=== PATIENT | female | born 1960 | race Two or more races ===

== ENCOUNTER 2019-09-19 05:52 | Day surgery (SDC) | payer OTHER ==
[2019-09-19] VITALS (10 sets, daily range): BP systolic 122–163; BP diastolic 86–92
[~2019-09-19] VITALS: Ht 134.6 cm; Wt 52.2 kg
--- NOTE | 2019-09-19 06:44 | Anethesia Preoperative Eval ---
Anesthesia Pre-op PMH/ROS General Date of Evaluation: Sep 19, 2019 Time of Evaluation: 06:43 Anesthesiologist: wyatt ASA Score: ASA 3 Mallampati Score Class I : Soft palate, uvula, fauces, pillars visible Class II: Soft palate, uvula, fauces visible Class III: Soft palate, base of uvula visible Class IV: Only hard plate visible Mallampati Classification: Class II Surgeon: jeanne Diagnosis: abdominal pain, gerd Surgical Procedure: egd/colonoscopy Anesthesia History: none Social History: smoking - nonsmoker Family History: no anesthesia problems Allergies: Coded Allergies: ACETAMINOPHEN (Verified Allergy, Severe, Hives, 09/19/19) Shrimp (Verified Allergy, Severe, Hives, 09/19/19) Medications: see eMAR Patient NPO?: Yes Past Medical History Cardiovascular: Reports: HTN, other - hyperlipidemia Pulmonary: Reports: asthma PSxH Narrative: Anesthesia Pre-op Phys. Exam Physician Exam Last Vital Signs Date Time Temp Pulse Resp B/P (MAP) Pulse Ox O2 Delivery O2 Flow Rate FiO2 09/19/19 07:15 98.0 68 17 145/89 94 Room Air Constitutional: NAD Neurologic: CN 2-12 intact Cardiovascular: RRR Respiratory: CTA Gastrointestinal: S/NT/ND Airway Exam Mallampati Score: Class II MO: limited Neck: flexible TMD: 2fb ROM: limited Anesthesia Pre-op A/P Risk Assessment & Plan Assessment: asa3 Plan: mac Status Change Before Surgery: No Pre-Antibiotics Drug: Tamara Hollingsworth MD Sep 19, 2019 06:44
--- NOTE | 2019-09-19 07:12 | Short Stay Surgery H&P ---
History of Present Illness History of Present Illness Chief Complaint Abdominal pain, constipation/GERDS HPI Jenny Moses is a 58 year old female who was admitted on for Abdominal Pain , Gerd and constipation Patient History PAST MEDICAL HISTORY: (1) Hypertension (2) Asthma (3) Hyperlipidemia (4) History of section Review of Systems Cardiovascular: Reports: hypertension Respiratory: Reports: asthma Skeletal: Reports: trauma Gastrointestinal: Reports: gastro esophageal reflux disease Genitourinary: Reports: no symptoms Neurologic: Reports: no symptoms Endocrine: Reports: no symptoms Hematologic: Reports: no symptoms Physical Exam Skin: normal HENT: normal Heart: normal Abdomen: abnormal Extremities: normal Genitourinary: normal Plan Plan of Care Upper and the lower GI endoscopies and obtaining biopsies Preop Interventions None Summary of Findings See the reports Attestation Are the patient's medical conditions optimized for surgery? Attestation Response: yes Jaimee Alexis MD Sep 19, 2019 07:12
--- NOTE | 2019-09-19 07:13 | Pre-Procedure Note/Attestation ---
Pre-Procedure Note/Attestation Complete Prior to Procedure Planned Procedure: left Procedure Narrative: Examination of the upper and the lower GI tract via endoscopy Indications for Procedure Pre-Operative Diagnosis: R/O Peptic ulcer/gastritis/colitis/tumors, polyps etc. Attestation I attest that I discussed the nature of the procedure; its benefits; risks and complications; and alternatives (and the risks and benefits of such alternatives ), prior to the procedure, with the patient (or the patient's legal customer service representative teller). I attest that, if there was a reasonable possibility of needing a blood transfusion, the patient (or the patient's legal customer service representative teller) was given the [place] Department [employer] standardized written summary, pursuant to the [place] Blood Safety Act ([place] Health and Safety Code # 1645, as amended). I attest that I re-evaluated the patient just prior to the surgery and that there has been no change in the patient's H&P, except as documented below: Jaimee Alexis MD Sep 19, 2019 07:13
[2019-09-19] MEDS ORDERED: LISINOPRIL10 MG ORAL (07:46)
[2019-09-19] MEDS ORDERED: Lidocaine 1% MPF 10mg/ml 5ml ONE (08:00)
[2019-09-19] MEDS ORDERED: LR 1000ml ONE (08:00)
[2019-09-19] MEDS ORDERED: Propofol 200mg/20ml IV ONE (08:00)
--- NOTE | 2019-09-19 08:28 | Endoscopy Procedure Note ---
Endoscopy Procedure Note General Indication for Procedure: Abdominal pain/dysphagia/GERDs, constipation. Procedures Performed: EGD - Mild antral gastritis otherwise normal Upper GI. endoscopy, biopsaies obtained from antrum and duodenal bulb area., colonoscopy - Minimal internal hemorrhoids;otherwise completely normal total colonoscopy upto the cecal base. Specimen: yes Pt Tolerated Procedure Well: Yes Estimated Blood Loss: none Anesthesia Anesthesiologist: Dr. Harper Anesthesia: moderate sedation Medications Medication Given: see anesthesia record Inserted Devices Implant(s) used?: No Quality Quality of Bowel Preparation: Excellent Did scope reach the cecum?: Yes Was there any complications?: No GI Core Measures 50 yrs or older w/o bx or poly: Yes 10yrs. F/U recommended: Yes If not recommended, why?: Med reason:<3 yrs.: System Reason:<3 yrs.: Jaimee Alexis MD Sep 19, 2019 08:28
--- NOTE | 2019-09-19 08:29 | Discharge Instructions ---
Discharge Instructions Discharge Instructions Follow up with: No need to see Dr. angel, the results will be sent to Dr. Rea. For Congestive Heart Failure Reminder Report to your physician any weight gain of 5 pounds or more in one week. Jaimee Angel MD Sep 19, 2019 08:29
[2019-09-19] MEDS ORDERED: LR 1000ml 1,000 ML IVLG SCH (08:37)
--- NOTE | 2019-09-19 08:43 | Immediate Post-Op Evaluation ---
Immediate Post-Op Evalulation Immediate Post-Op Evalulation Procedure: egd/colonoscopy w/bx Date of Evaluation: Sep 19, 2019 Time of Evaluation: 08:43 IV Fluids: 225ml lr Blood Products: none Estimated Blood Loss: negligible Blood Pressure Systolic: 122 Blood Pressure Diastolic: 90 Pulse Rate: 67 Respiratory Rate: 18 O2 Sat by Pulse Oximetry: 100 Temperature (Fahrenheit): 97.0 Pain Score (1-10): 0 Nausea: No Vomiting: No Complications none Patient Status: awake, reacts, patent Hydration Status: adequate Drug: Tamara Hollingsworth MD Sep 19, 2019 08:43
[2019-09-19] MEDS ORDERED: Midazolam 2mg/2ml Inj IVP PRN (08:45)
[2019-09-19] MEDS ORDERED: fentaNYL 100 mcg/2 mL IV PRN (08:45)
[2019-09-19] MEDS ORDERED: DiphenhydrAMINE 50mg/ml Inj IVP PRN (08:45)
[2019-09-19] MEDS ORDERED: Atropine Inj 1mg/10ml Syr IV PRN (08:45)
--- NOTE | 2019-09-19 08:45 | 48 Hour Post Anesthesia Eval ---
Post Anesthesia Evaluation Procedure: egd/colonoscopy w/bx Date of Evaluation: Sep 19, 2019 Time of Evaluation: 08:45 Blood Pressure Systolic: 140 0: 86 Pulse Rate: 61 Respiratory Rate: 18 Temperature (Fahrenheit): 97.0 O2 Sat by Pulse Oximetry: 100 Airway: patent Nausea: No Vomiting: No Pain Intensity: 0 Hydration Status: adequate Cardiopulmonary Status: stable Mental Status/LOC: patient returned to baseline Post-Anesthesia Complications: none Follow-up care needed: N/A Tamara Harper MD Sep 19, 2019 08:45
--- NOTE | 2019-09-19 13:30 | Pre-op HX & Phy Repo 2 SIG ---
DATE OF ADMISSION: 09/19/2019 HISTORY OF PRESENT ILLNESS: The patient is a 58-year-old , non-Tamaz[place] speaking female, who is being seen today prior to undergoing to the endoscopy room for examination of upper and lower GI endoscopy. The patient actually was seen by me approximately three weeks ago in the office as where she had been referred for evaluation of gastrointestinal conditions that she has suffered subsequent to her work injury. 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 Subsequently, she had been treated for the problem that she sustained and injuries over the right side of her body after falling down on a sleepy place in the office work. She had also injured the right hip and lower back area for which she had received subsequently significant amount of medications and physical therapy and chiropractic plus nonsteroidal anti-inflammatory agents and strong analgesics. The patient reported to me that subsequent to taking all these medications, she has started to experience abdominal symptoms mostly the pain and discomfort over the upper and lower part of the abdomen, which occur on a daily intermittent basis. She reports that she does feel that the pain also radiates to her chest area as well along with symptoms of heartburn and gastroesophageal reflux. She reports that she has been treated in the past by medications such as omeprazole, which seems to be helpful. However, she has been taking this naproxen and other NSAID medications regularly for the treatment of her bodily injury and pain. The patient reports that the symptoms gradually started for the past two years and gradually increasing. She also reports that she does have difficulty swallowing consistent with dysphagia, but no odynophagia. She also does have symptoms of belching and regurgitations as well. She also complains of constipation as she does have bowel movements occasionally every other day, but mostly on daily basis. 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 This caused her falling down. PAST MEDICAL HISTORY: The patient has had history of hypertension, hyperlipidemia, asthma, possibly borderline diabetes, and tension headaches. PAST SURGICAL HISTORY: . ALLERGIES: Tylenol and shrimp. FAMILY HISTORY: None significant as the patient only has a child with leukemia. MEDICATIONS: Currently, the patient is taking omeprazole, orphenadrine, lisinopril, albuterol inhaler, Advair Diskus, famotidine, and naproxen. She has been taking this naproxen 500 mg twice a day. HABITS: The applicant denies drinking alcohol or smoking cigarettes. REVIEW OF SYSTEMS: Basically history of present illness. PHYSICAL EXAMINATION: GENERAL: Reveals alert, well-oriented female, does not seem to be in any acute distress. VITAL SIGNS: Blood pressure 145/89, temperature 98.0, pulse rate 68 per minute, respirations 17 per minute, oxygen saturation 94% on room air. HEENT: Normocephalic. Pupils equal in size and reactive to light and accommodation. No visible jaundice. Buccal cavity, tongue midline, well hydrated. No ulcers. NECK: Supple. No JVD, thyromegaly, or adenopathy. CHEST: Clear to auscultation and percussion. No rales or rhonchi. HEART: S1, S2 normal. Regular rhythm. No gallops or murmur. ABDOMEN: Soft, but there is tender all over the abdomen particularly the epigastric area and all the angles. There is no organomegaly or masses. Bowel sounds are adequately present. No percussion tenderness noted. RECTAL: Deferred. NEUROLOGIC: The applicant seems to be quite stable and all these reflexes are normal. No localized numbness or weakness. SKIN: Within normal limits. PRELIMINARY PREOPERATIVE IMPRESSION: 1. Epigastric pain of uncertain etiology, rule out gastroesophageal acid reflux versus peptic ulcer disease, gastritis, aggravated by chronic use of NSAID medications. 2. Dysphagia, possibly secondary to gastroesophageal acid reflux versus NSAID-induced esophagitis. 3. History of constipation of uncertain etiology, rule out intracolonic lesions versus irritable bowel syndrome or side effects of analgesics. 4. History of bodily injury, work related. 5. Hypertension. 6. Hyperlipidemia. 7. Asthma. 8. Chronic headaches. RECOMMENDATION: At this time after examination, the patient appear the patient is capable and clear to undergo the procedure for upper and lower GI endoscopic examination that she is planned to receive. She understands the risks and benefits and will sign the consent. Said Megan Alexis DR: GT JOB#: [id number] CC: LILIANA
--- NOTE | 2019-09-19 15:15 | Procedure Note ---
DATE OF PROCEDURE: 09/19/2019 SURGEON: Jaimee Alexis M.D. PROCEDURE: Total colonoscopy. PREOPERATIVE DIAGNOSES: 1. Abdominal pain. 2. Constipation. POSTOPERATIVE DIAGNOSIS: Mild internal hemorrhoids otherwise completely normal total colonoscopy up to the base of the cecum as examined. MEDICATION USED: Per Dr. Brunson, anesthesiologist. INSTRUMENT: GIF Olympus video colonoscope. DESCRIPTION OF PROCEDURE: The patient after arriving endoscopy unit, was told about risks and benefits of the procedure which she accepted and signed informed consent. She was then put on the left lateral decubitus position. After adequate IV sedation, the scope was gently passed through the anal area which revealed evidence of minimal internal hemorrhoids consistent with hemorrhoid grade 1. The rest of the rectum looked quite normal. Retroflexion maneuver was applied as well. At this point, the scope was straightened and gradually passed into the rather redundant left colon reaching to the splenic flexure from there into the transverse colon, hepatic flexure, and finally was guided all the way to the base of the cecum. All these areas remained completely normal without any pathological findings. No tumors, polyps, strictures, colitis etc. was found. The colon cleanup was excellent. At this point after reaching to the base of the cecum, within 6 minutes the scope was gradually withdrawn and re-evaluation of the colon did not reveal any other abnormalities. The patient tolerated the procedure well and left the endoscopy room in a good condition. Jaimee Alexis M.D. DR: Violette JOB#: [id number] CC:
--- NOTE | 2019-09-19 15:30 | Operative Note - Dictated ---
DATE OF OPERATION: 09/19/2019 SURGEON: Jaimee Alexis M.D. PROCEDURE: Esophagogastroduodenoscopy with biopsy. PREOPERATIVE DIAGNOSIS: Abdominal pain, history of GERD, and dysphagia. POSTOPERATIVE DIAGNOSIS: Mild gastritis of the antrum, otherwise completely normal upper GI endoscopy. Biopsy was taken from antrum and the duodenal area. MEDICATION USED: Per Dr. Brunson, anesthesiologist. INSTRUMENT: GIF Olympus upper GI video endoscope. DESCRIPTION OF PROCEDURE: The patient after arriving in the endoscopy unit, was told about risks and benefits of the procedure, which she accepted and signed informed consent. She was then put on the left lateral decubitus position. After adequate IV sedation, the scope was gently passed through the cricopharyngeal area, was lodged into the upper esophagus and gradually advanced towards gastroesophageal junction. The entire length of the esophagus looked normal. GE junction also looked normal and there was no any evidence of Gee's or hiatal hernia. At this time, the scope was advanced into the stomach. Gastric cavity was distended with insufflation of air and gradually areas of the fundus and the body and the antrum were examined, which revealed basically normal gastric mucosa into upper part of the gastric cavity only in the antral area. It was mild inflammatory process consistent with mild gastritis. However, there was no ulcers, tumors, polyps, bleeding sites, etc. At this point, a retroflexion maneuver was applied and the area of the gastroesophageal junction was examined in a closer fashion, which revealed normal findings. The scope was then straightened and passed into the antrum from there into the pylorus. First and second portion of duodenum were also examined. They looked normal, however, one random biopsy from the duodenal bulb was also obtained. Subsequently, the procedure was terminated. The patient tolerated the procedure well. Jaimee Alexis M.D. DR: GT JOB#: [id number] CC:
== END 2019-09-19 10:50 | disposition home or self-care (01) ==
LOC: GAS 05:52
DX: R10.9 Unspecified abdominal pain (principal); K21.9 Gastro-esophageal reflux disease without esophagitis; R13.10 Dysphagia, unspecified; I10 Essential (primary) hypertension; E78.5 Hyperlipidemia, unspecified; Z88.6 Allergy status to analgesic agent; Z91.013 Allergy to seafood; Z79.899 Other long term (current) drug therapy; R51 Headache; J45.909 Unspecified asthma, uncomplicated; K29.50 Unspecified chronic gastritis without bleeding; K64.8 Other hemorrhoids; K59.00 Constipation, unspecified
CPT/HCPCS: 43239; 45378; J2704; J7120; 94003; 94150